=== PATIENT | female | born 1990 | race Caucasian/White ===

== ENCOUNTER 2021-06-05 11:14 | Emergency (ER) | payer OTHER ==
[~2021-06-05 11:14] MED LIST: CLEOCIN HCL300 MG PO; COLACE100 MG PO; IBUPROFEN600 MG PO; NORCO 5-325 TA1 EACH PO; Viscous Lidocaine 2%
[2021-06-05] MEDS ORDERED: ZOFRAN4 MG PO (13:11)
== END 2021-06-05 14:14 | disposition home or self-care (01) ==
LOC: ER1 11:14
DX: S09.90XA Unspecified injury of head, initial encounter (principal); R11.2 Nausea with vomiting, unspecified; W22.8XXA Striking against or struck by other objects, initial encounter
CPT/HCPCS: 70450; 93005; 96372; 99284; J1885